=== PATIENT | male | born 1950 | race Caucasian/White ===

== ENCOUNTER 2017-05-31 17:26 | Emergency (ER) | payer OTHER ==
[2017-05-31] MEDS ORDERED: LIDOCAINE 1%/EPI 1:100000 (50 ML MULTI DOSE VIAL) INF ONE (17:31)
--- NOTE | 2017-05-31 17:32 | PDOC ---
History of Present Illness <Any Tran - Last Filed: 05/31/17 18:21> - General History Source: Patient Exam Limitations: No Limitations - History of Present Illness Initial Comments: 05/31/17 18:34 The patient is a 67 year old male with a significant past medical history of glaucoma, who is sent to the ED from urgent care s/p fall. Patient comes in asking for sutures. Patient was running when he tripped and fell on his face. Denies back pain, neck pain. Patient denies losing consciousness. Patient denies dizziness. Patient denies chest pain, SOB, fever, chills, abdominal pain, nausea, vomiting , diarrhea. Last tetanus shot was in 2012. <Antonio Leon - Last Filed: 05/31/17 18:37> - General Chief Complaint: Injury Stated Complaint: FELL WHILE OUT FOR A RUN ABRASIONS AND LACERATION Time Seen by Provider: 05/31/17 17:32 Past History <Any Tran - Last Filed: 05/31/17 18:21> <Antonio Leon - Last Filed: 05/31/17 18:37> - Past Medical History Allergies/Adverse Reactions: Allergies Allergy/AdvReac Type Severity Reaction Status Date / Time EYEDROPS Allergy Intermediate Uncoded 05/31/17 17:29 Home Medications: Ambulatory Orders Doxycycline Hyclate 20 mg PO BID 05/31/17 Travoprost [Travatan Z] 2.5 ml OP DAILY 05/31/17 Review of Systems - Review of Systems Able to Perform ROS?: Yes Comments:: 05/31/17 18:35 GENERAL/CONSTITUTIONAL: No fever or chills. No weakness. HEAD, EYES, EARS, NOSE AND THROAT: No change in vision. No ear pain or discharge. No sore throat. CARDIOVASCULAR: No chest pain or shortness of breath. RESPIRATORY: No cough, wheezing, or hemoptysis. GASTROINTESTINAL: No nausea, vomiting, diarrhea or constipation. GENITOURINARY: No dysuria, frequency, or change in urination. MUSCULOSKELETAL: No joint or muscle swelling or pain. No neck or back pain. SKIN: + laceration to the face. + abrasion to the left knee. NEUROLOGIC: No headache, vertigo, loss of consciousness, or change in strength/ sensation. ENDOCRINE: No increased thirst. No abnormal weight change. HEMATOLOGIC/LYMPHATIC: No anemia, easy bleeding, or history of blood clots. ALLERGIC/IMMUNOLOGIC: No hives or skin allergy. <Antonio Leon - Last Filed: 05/31/17 18:37> *Physical Exam - Vital Signs Last Vital Signs Temp Pulse Resp BP Pulse Ox 98 F 80 16 129/88 98 05/31/17 17:28 05/31/17 17:28 05/31/17 17:28 05/31/17 17:28 05/31/17 17:28 - Physical Exam Comments: 05/31/17 18:36 GENERAL: Awake, alert, and fully oriented, in no acute distress HEAD: No signs of trauma EYES: PERRLA, EOMI, sclera anicteric, conjunctiva clear ENT: Auricles normal inspection, hearing grossly normal, nares patent, oropharynx clear without exudates. Moist mucosa NECK: Normal ROM, supple, no lymphadenopathy, JVD, or masses LUNGS: Breath sounds equal, clear to auscultation bilaterally. No wheezes, and no crackles HEART: Regular rate and rhythm, normal S1 and S2, no murmurs, rubs or gallops ABDOMEN: Soft, nontender, normoactive bowel sounds. No guarding, no rebound. No masses EXTREMITIES: Normal range of motion, no edema. No clubbing or cyanosis. No cords, erythema, or tenderness NEUROLOGICAL: Cranial nerves II through XII grossly intact. Normal speech, normal gait SKIN: 1 cm stellate laceration laceration. A 2 cm flap tissue avulsion. 1 cm linear laceration. <Antonio Leon - Last Filed: 05/31/17 18:37> ED Treatment Course - Medications Given in the ED: ED Medications Discontinued Medications Generic Name Dose Route Start Last Admin Trade Name Freq PRN Reason Stop Dose Admin Lidocaine/Epinephrine 5 ml 05/31/17 17:31 05/31/17 17:51 Xylocaine 1%-Epi 1:100,000 INF 05/31/17 17:32 Not Given ONCE ONE <Antonio Leon - Last Filed: 05/31/17 18:37> *DC/Admit/Observation/Transfer - Discharge Dispostion Admit: No <Any Tran - Last Filed: 05/31/17 18:21> - Attestations Scribe Attestion: 05/31/17 18:37 Documentation prepared by Antonio Leon, acting as medical radiation therapist for Any Tran MD, MD. <Antonio Leon - Last Filed: 05/31/17 18:37> Diagnosis at time of Disposition: Laceration of face Qualifiers: Encounter type: initial encounter Qualified Code(s): S01.81XA - Laceration without foreign body of other part of head, initial encounter - Discharge Dispostion Condition at time of disposition: Stable - Patient Instructions Printed Discharge Instructions: DI for Laceration Repair -- Simple Additional Instructions: return to the ED in 5 days for suture removal. Return to the ED for fever, red hot tender swollen face, pus from wound, nausea and vomiting. Its ok to wash your face, but otherwise, keep the wounds clean and dry. rinse your mouth with water after every meal.
[2017-05-31] MEDS ORDERED: LIDOCAINE 2%/EPINEPHRINE 1:100000 (50 ML MD VIAL) INF ONE (17:36)
[2017-05-31 17:48] VITALS: BP 129/88; PULSE 80; TEMP 98; BMI 25.4
== END 2017-05-31 18:44 | disposition home or self-care (01) ==
LOC: FER 17:26
PROC: 0HQ1XZZ Repair Face Skin, External Approach (ICD-10-PCS; principal; 2017-05-31)
DX: S01.81XA Laceration without foreign body of other part of head, initial encounter (principal); W18.39XA Other fall on same level, initial encounter; Y93.02 Activity, running; Y92.9 Unspecified place or not applicable; H40.9 Unspecified glaucoma
CPT/HCPCS: 99282-25